=== PATIENT | female | born 1990 | race Two or more races ===

== ENCOUNTER → 2016-09-27 | Outpatient (CLI) | payer BC ==
--- NOTE | 2016-09-27 14:30 | RADRPT ---
PROCEDURE: XR bilateral knees. CLINICAL INDICATION: Knee pain TECHNIQUE: AP weightbearing, lateral weightbearing and sunrise views of each knee are available fo r review. COMPARISON: None available FINDINGS: The osseous structures are normal in mineralization, architecture and alignment. No fractures are i dentified. No osseous lesions are identified. The joints are unremarkable. The soft tissues are u nremarkable. IMPRESSION: Unremarkable right knee Unremarkable left knee RPTAT: [facility] .Jose Triana MD, MD Date Time Electronically viewed and signed by .Jose Triana MD, MD on 09/27/2016 14:30 .B/
--- NOTE | 2016-10-17 10:13 | HKNOTE ---
DATE OF SERVICE: 09/27/2016 MAIN COMPLAINT: Pain in both knees. HISTORY OF MAIN COMPLAINT: The patient is a 25-year-old female, who complains of pain in both knees . She saw a sports medicine doctor, who obtained MRI scans of her knees and told her they were "kristian an." She continues to have pain in both knees, worse on the left side. The patient teaches dancing for a living. The patient has been dancing since the age of 5 in [place] . There has not been any history of injury to either knee, except for the ballroom dancing. The pain is aggravated by walking and weightbearing. She does not have any problems with squatting or with s tair climbing. She does get rest pain, sometimes night pain. She applies ice. The left knee swell s and occasionally feels unstable. There is no locking. She sometimes gets night pain. She has tried ibuprofen and Advil and these help slightly. She does not have any history of problems with her lower back. No numbness or tingling in her legs. She does not limp. PAST ORTHOPEDIC HISTORY AND PREVIOUS ORTHOPEDIC OPERATIONS: None. PRIOR CORTISONE INTAKE: None. ALCOHOL INTAKE: None. OTHER JOINT PROBLEMS: None. BLOOD TESTS FOR ARTHRITIS: None. PRIOR INJURIES TO HIPS OR KNEES: None. WORK STATUS: The patient teaches dancing. PHYSICAL EXAMINATION: VITAL SIGNS: Height 5 feet 4 inches, weight 120 pounds, blood pressure 98/65, and temperature is 98 .0. Patient's gait is completely normal. BACK: Dynamic pain assessment reveals a pain free range of motion in flexion, extension, lateral be nding, and rotation. Inspection of the spine reveals no list. There is @@no lumbar paraspinal muscle spasm. The pelvis is level. Facet stress test is negative bilaterally. Palpation of the spine demon strates no tenderness of the spinous processes, facet joints, sacroiliac joint, sciatic notch, or po sterior thigh. NEUROLOGIC: Motor examination reveals no muscle deficit in the lower extremities. Deep tendon refl exes in the right knee jerk plus, left knee jerk plus, right ankle jerk plus, left ankle jerk plus. Straight leg raising is negative bilaterally to 105 degrees. No tenderness anywhere around either hip. RIGHT KNEE: The right knee shows normal alignment. Active and passive extension is 0 degrees. Activ e and passive flexion is 135 degrees. The medial and lateral collateral ligaments and cruciate ligam ents are intact. Jacque test is negative. There is no effusion, tenderness, scarring or cysts. The re is 2+ crepitus in the knee, ____ in the patella. ____ There is no tenderness on the articular robison rface of the patella or in the patellar groove. The Q angle is normal. LEFT KNEE: The left knee shows normal alignment. Active and passive extension is 0 degrees. Active and passive flexion is 135 degrees. The medial and lateral collateral ligaments and cruciate ligamen ts are intact. Jacque test is negative. There is no effusion, tenderness, scarring, or cysts. There is 2+ crepitus in the knee, ____ in the patella. ____ There is no tenderness on the articular surf martha of the patella or in the patellar groove. The Q angle is normal. IMAGING: Plain x-rays of her knees obtained today at the [facility] (3 views) sh ow lateral tracking of the both patellas. Otherwise normal. DIAGNOSIS: Chondromalacia of the patellas. The patient is advised that her painful knee problem is partly congenital and is partly an aggravati on of ____ anatomy which is causing her to add additional ____ to the patellofemoral joint. She was advised that the only treatment I know which may give her some relief would be an arthroscopic late ral release of the patellar ligament of the parapatellar ligaments to allow the knee to "float" back into its normal groove. This was briefly discussed with her. The patient did not seem to show any interest in her condition at all. She was given the card of Dr. Deandre Ralph, who is an expert in this particular condition. Dictated By: FELA RAMOS/BELLA Conf#: [id number] DID#: [id number]
== END | disposition home or self-care (01) ==
LOC: HKI 13:47
DX: M22.42 Chondromalacia patellae, left knee (principal); M22.41 Chondromalacia patellae, right knee
CPT/HCPCS: 73562; G0463